=== PATIENT | female | born 1965 | race Caucasian/White ===

== ENCOUNTER → 2018-03-23 | Outpatient (CLI) | payer OTHER ==
[~2018-03-23] MED LIST: Augmentin 875-1 EACH PO; SERT100 PO; TRAZADONE PO
[2018-03-25 15:08] LABS: HPV 16 Negative (Negative); HPV 18 Negative (Negative); HPV OTHER HR TYPES Negative (Negative)
== END | disposition home or self-care (01) ==
LOC: LAB SHORT 18:58 → LAB 18:58
PROVIDERS: Nurse Practitioner Women's Health
DX: Z12.4 Encounter for screening for malignant neoplasm of cervix (principal); Z91.89 Other specified personal risk factors, not elsewhere classified
CPT/HCPCS: 87624; G0123

== ENCOUNTER → 2018-03-23 | Outpatient (CLI) | payer OTHER ==
[2018-03-25 23:12] LABS: CHLAMYDIA TRACHOMATIS, NAA Negative (Negative); NEISSERIA GONORRHOEAE, NAA Negative (Negative)
== END | disposition home or self-care (01) ==
LOC: LAB SHORT 17:13 → LAB 17:13
PROVIDERS: Nurse Practitioner Women's Health
DX: Z11.3 Encounter for screening for infections with a predominantly sexual mode of transmission (principal)
CPT/HCPCS: 87491; 87591

== ENCOUNTER → 2019-03-28 | Outpatient (CLI) | payer OTHER ==
[2019-03-30 15:07] LABS: HPV 16 Negative (Negative); HPV 18 Negative (Negative); HPV OTHER HR TYPES Negative (Negative)
== END | disposition home or self-care (01) ==
LOC: LAB 09:39 → LAB SHORT 09:39
PROVIDERS: Nurse Practitioner Women's Health
DX: Z12.4 Encounter for screening for malignant neoplasm of cervix (principal); Z91.89 Other specified personal risk factors, not elsewhere classified
CPT/HCPCS: 87624; G0123

== ENCOUNTER 2021-03-10 09:35 | Day surgery (SDC) | payer OTHER ==
[~2021-03-10] VITALS: Ht 172.7 cm; Wt 64.3 kg
--- NOTE | 2021-03-10 10:24 | NUR ---
History, Chart, Medications and Allergies reviewed before start of procedure. Patient confirms NPO status and agrees with scheduled surgery. Reports taking all of colon prep with clear results. Reports being post-menopause with 2 years no menses. No hcg testing indicated.
--- NOTE | 2021-03-10 11:24 | NUR ---
03/10/21 1124 Ary Martínez History, Chart, Medications and Allergies reviewed before start of procedure. Patient confirms NPO status and agrees with scheduled surgery. 3-LEAD EKG REVIEWED WITH PHYSICIAN PRIOR TO START OF PROCEDURE. MONITOR INTACT WITH CONTINUOUS PULSE OXIMETRY AND INTERMITTENT BP. PATIENT DETERMINED TO BE ASA APPROPRIATE FOR PROPOFOL SEDATION PRIOR TO START OF PROCEDURE BY .
--- NOTE | 2021-03-10 12:30 | NUR ---
Patient up to Ambulate independently. Gait steady. Discharge instructions reviewed with patient. Patient verbalizes understanding. Copy given to patient to take home. ALSO WENT OVER DISCHARGE INSTRUCTIONS WITH FAMILY. Discharged via wheelchair to private car for ride home WITH DAUGHTER ACTUALLY GIVING PT RIDE HOME INSTEAD OF .
== END 2021-03-10 12:28 | disposition home or self-care (01) ==
LOC: ORSCMMR 09:35 → ORD 10:30 → ORSCMMR 10:30
DX: Z12.11 Encounter for screening for malignant neoplasm of colon (principal); D12.0 Benign neoplasm of cecum; D12.5 Benign neoplasm of sigmoid colon; F41.8 Other specified anxiety disorders; Z86.010 Personal history of colon polyps; F17.210 Nicotine dependence, cigarettes, uncomplicated
CPT/HCPCS: 88305; J2704; J7120

== ENCOUNTER 2024-04-26 06:08 | Day surgery (SDC) | payer OTHER ==
[2024-04-26] VITALS (19 sets, daily range): BP systolic 99–149; BP diastolic 63–98
[~2024-04-26] VITALS: Ht 172.7 cm; Wt 63.9 kg
[~2024-04-26 06:08] MED LIST changes: +ALLEGRA ALLERG180 MG PO; +ESTRADIOL TOP; +Flonase 0.05% N16 GM; +NORETHINDRONE TOP
[2024-04-26] MEDS ORDERED: Lactated Ringer's 1,000 ML IV SCH (06:20)
--- NOTE | 2024-04-26 06:54 | NUR ---
Ambulatory in Day Surgery History, Chart, Medications and Allergies reviewed before start of procedure. Pre-Op teaching done. Pt verbalizes understanding.
[2024-04-26] MEDS ORDERED: CeFAZolin Sodium 2,000 MG in NS 100 ML IV SCH (07:00)
[2024-04-26] MEDS ORDERED: Bupivacaine 0.5% HCl 5 MG/ML 30MLVIAL ONE (07:11)
[2024-04-26] MEDS ORDERED: Midazolam HCl 1MG / ML 2ML Vial ONE ×2 (07:13→07:19)
[2024-04-26] MEDS ORDERED: Midazolam HCl 1MG / ML 2ML Vial IV SCH (07:15)
[2024-04-26] MEDS ORDERED: propofoL 20 ML IV ONE (07:19)
[2024-04-26] MEDS ORDERED: FentaNYL Citrate 50 MCG/ML 5 ML Injection ONE (07:19)
[2024-04-26] MEDS ORDERED: Lidocaine HCl 2% 20 ML MDV ONE (07:20)
[2024-04-26] MEDS ORDERED: Ondansetron HCl 2 MG / ML 2ML Vial ONE ×2 (07:20→10:34)
[2024-04-26] MEDS ORDERED: Dexamethasone Sod Phos 10 MG/ML 1ML VIAL ONE (07:20)
[2024-04-26] MEDS ORDERED: Rocuronium Bromide 10 MG/ML 5ML Injection IV ONE (07:21)
[2024-04-26] MEDS ORDERED: Sugammadex Sodium 200 MG/2ML SDV (100 MG/ML) ONE (09:49)
[2024-04-26] MEDS ORDERED: HYDROmorphone HCl/Pf 1MG SYR ONE (09:49)
[2024-04-26] MEDS ORDERED: Ketorolac Tromethamine 30mg Vial ONE (10:00)
[2024-04-26] MEDS ORDERED: Metoclopramide HCl 5MG / ML 2ML Vial ONE (10:20)
[2024-04-26] MEDS ORDERED: FentaNYL Citrate 50 MCG/ML 2 ML Injection ONE (10:20)
[2024-04-26] MEDS ORDERED: Simethicone 80 MG Chew PO PRN (10:35)
[2024-04-26] MEDS ORDERED: FentaNYL Citrate 50 MCG/ML 2 ML Injection IV PRN (10:35)
[2024-04-26] MEDS ORDERED: Metoclopramide HCl 10 MG Tab PO PRN (10:35)
[2024-04-26] MEDS ORDERED: DiphenhydrAMINE HCL 25 MG Cap PO PRN (10:35)
[2024-04-26] MEDS ORDERED: FLU VACC TS2024-25(6MOS UP)/PF 45 MCG/0.5 ML SYRINGE IM SCH (10:35)
[2024-04-26] MEDS ORDERED: Ibuprofen 400 MG Tab PO PRN (10:35)
[2024-04-26] MEDS ORDERED: Ondansetron HCl 2 MG / ML 2ML Vial IV PRN (10:35)
[2024-04-26] MEDS ORDERED: OxyCODONE HCL 5 MG TAB PO PRN ×2 (10:40)
--- NOTE | 2024-04-26 11:28 | NUR ---
POST OP: REPORT RECEIVED FROM TREE MARKER ROSE. PT TO UNIT AT ABOUT 1100. PT IS A/O, VSS. SURGICAL SITES WNL, DENIES PAIN, N/V AT THIS TIME. PT INSTRUCTED TO CALL STAFF WHEN NEEDS OOB THE FIRST TIMES. CALL LIGHT IN REACH
[2024-04-26 11:49] LABS: BASOPHILS ABSOLUTE AUTO 0.05 K/mm3 (0.00-0.23); BASOPHILS PERCENT AUTO 0 % (0-2); EOSINOPHILS ABSOLUTE AUTO 0.03 K/mm3 (0.00-0.68); EOSINOPHILS PERCENT AUTO 0 % (0-6); Hematocrit 37.9 % (33.0-51.0); Hemoglobin 12.7 g/dL (11.5-16.0); IMMATURE GRAN ABSOLUTE AUTO 0.09 K/mm3 (0.00-0.10); IMMATURE GRAN PERCENT AUTO 1 % (0-1); LYMPHOCYTES ABSOLUTE AUTO 1.83 K/mm3 (0.84-5.20); LYMPHOCYTES PERCENT AUTO 9 % (21-46); MONOCYTES ABSOLUTE AUTO 0.45 K/mm3 (0.16-1.47); MONOCYTES PERCENT AUTO 2 % (4-13); Mean Corpuscular HGB Conc 33.5 g/dL (31.5-36.5); Mean Corpuscular Volume 90 fL (80-100); Mean Platelet Volume 9.7 fL (9.1-12.4); NEUTROPHILS PERCENT AUTO 87 % (41-73); Platelet Count 260 K/mm3 (150-400); RDW Coefficient Variation 14.4 % (11.7-14.2); RDW Standard Deviation 47.1 fL (35.1-46.3); Red Blood Cell Count 4.23 M/mm3 (3.80-5.20); White Blood Cell Count 19.45 K/mm3 (4.00-11.30)
[2024-04-26] MEDS ORDERED: Ketorolac Tromethamine 30mg Vial IV SCH (12:00)
[2024-04-26] MEDS ORDERED: Acetaminophen 500 MG Tab PO SCH (16:00)
[2024-04-26] MEDS ORDERED: ACET500 PO (16:34)
[2024-04-26] MEDS ORDERED: IBUP800 PO (16:35)
[2024-04-26] MEDS ORDERED: OXYC5 PO (16:36)
--- NOTE | 2024-04-26 18:09 | NUR ---
DISCHARGE: PT ABLE TO VOID, AMBULATE, PAIN MANAGED. OK TO DC. DC INSTRUCTIONS PRINTED, AND PT EDUCATED BY GABE CRANDALL RN . IV DC'D WNL, TIP INTACT. PT REPORTS MEDS SENT TO [employer]. PT LEFT UNIT ON FOOT WITH
== END 2024-04-26 17:30 | disposition home or self-care (01) ==
LOC: ORSCMMR 06:08 → ORD 07:30 → ORSCMMR 07:30 → SURS 11:17 → ORSCMMR 17:30
PROVIDERS: Obstetrics & Gynecology
PROC: 0UT9FZZ Resection of Uterus, Via Natural or Artificial Opening With Percutaneous Endoscopic Assistance (ICD-10-PCS; principal; 2024-04-26 07:30)
PROC: 0UT7FZZ Resection of Bilateral Fallopian Tubes, Via Natural or Artificial Opening With Percutaneous Endoscopic Assistance (ICD-10-PCS; principal; 2024-04-26 07:30)
DX: D25.9 Leiomyoma of uterus, unspecified (principal); N80.03 Adenomyosis of the uterus; N84.1 Polyp of cervix uteri; F41.9 Anxiety disorder, unspecified; Z79.899 Other long term (current) drug therapy
CPT/HCPCS: 36415; 85025; 88307; A9270; J0690; J1100; J1170; J1885; J2250; J2405; J2704; J2765; J3010; J7120